=== PATIENT | male | born 1960 | race African-American/Black ===

== ENCOUNTER 2020-05-19 01:37 | Emergency (ER) | payer SELFPAY ==
[~2020-05-19] VITALS: Ht 172.7 cm; Wt 97.0 kg
[2020-05-19] MEDS ORDERED: IPRATROPIUM BROMIDE (0.02%) 0.5MG/2.5ML NEB HHN STA (07:55)
[2020-05-19] MEDS ORDERED: PREDNISONE 20MG TABLET PO STA (07:55)
[2020-05-19] MEDS ORDERED: ALBUTEROL (0.083%) 2.5MG/3ML NEB HHN STA (07:55)
[2020-05-19 09:09] LABS: BASOPHILS % 0.6 % (0.0-2.0); EOSINOPHILS % 7.7 % (0.0-5.0); HEMOGLOBIN. 15.4 g/dL (14.0-18.0); LYMPHOCYTES % 18.4 % (20.0-50.0); MEAN CORPUSCULAR HEMOGLOBIN 30.4 pg (28.0-32.0); MEAN CORPUSCULAR VOLUME 89.1 fL (80.0-94.0); MEAN PLATELET VOLUME 10.1 fl (7.4-10.4); MONOCYTES % 7.1 % (2.0-8.0); NEUTROPHILS % 66.2 % (40.0-76.0); PLATELET 221 x1000/uL (130-400); RED BLOOD CELL COUNT 5.05 mill/uL (4.7-6.1); RED CELL DISTRIBUTION WIDTH 14.4 % (11.6-14.6)
[2020-05-19 09:15] LABS: CHLORIDE 107 mEq/L (98-107)
[2020-05-19 10:37] VITALS: BP 118/98
== END 2020-05-19 11:35 | disposition home or self-care (01) ==
LOC: ER 02:22
DX: J45.901 Unspecified asthma with (acute) exacerbation (principal); R06.03 Acute respiratory distress
CPT/HCPCS: 36415; 71045; 80053; 83880; 84484; 85025; 93005; 99285; J7512; Z7610